=== PATIENT | female | born 2000 | race Two or more races ===

== ENCOUNTER 2025-03-28 15:07 | Inpatient (IN) | payer OTHER ==
[~2025-03-28] VITALS: Ht 165.1 cm; Wt 52.2 kg
--- NOTE | 2025-03-28 15:26 | NUR ---
PTE ALERTA Y ORIENTADA X 3 ESFERAS QUIEN REFIERE DIARREAS Y VOMITOS DESDE L VIERNES [place] DE [facility] DE [place].PTE CON LABS.
[2025-03-28] MEDS ORDERED: LEXAPRO5 MG (15:28)
[2025-03-28] MEDS ORDERED: 0.9 % SODIUM CHLORIDE 1,000 ML IV ONE (15:45)
[2025-03-28] MEDS ORDERED: ONDANSETRON HCL 2 MG/ML VIAL IV ONE (15:45)
[2025-03-28] MEDS ORDERED: LACTOBACILLUS ACIDOPHILUS 1 CAP CAP PO ONE (15:45)
[2025-03-28] MEDS ORDERED: FAMOTIDINE/PF 20 MG/2 ML VIAL IV ONE (15:45)
[2025-03-28] MEDS ORDERED: CIPROFLOXACIN IN 5 % DEXTROSE 400 MG/200 ML PIGGYBAG IV ONE (16:15)
[2025-03-28] MEDS ORDERED: METRONIDAZOLE/SODIUM CHLORIDE 500 MG/100 ML PIGGYBACK IV ONE (16:15)
[2025-03-28 16:24] LABS: BASO % 0.3 % (0.1-1.2); EOS # 0.16 (0.04-0.54); EOS % 2.4 % (0.7-7.0); LYMPH # 1.60 (1.18-3.74); LYMPH % 23.8 % (19.3-53.1); MEAN PLATELET VOLUME 9.90 fl (9.4-12.4); MONO # 0.81 (0.24-0.82); NEUT # 4.11 (1.56-6.13); NEUT % 61.3 % (34.0-71.1); RED CELL DISTRIBUTION WIDTH 12.0 % (11.6-14.4)
--- NOTE | 2025-03-28 16:24 | NUR ---
SE ORIENTA A PACIENTE SOBRE TX MEDICO, REFIERE ENTENDER. SE REALIZAN MUESTRAS DE LABORATORIO BAJO MEDIDAS ASEPTICA.SE ADMINISTRAN MEDICAMENTOS ADITI ORDEN MEDICA. PENDIENTE RE-EVALUACION MEDICA.
[2025-03-28 16:36] LABS: MONO % 12.1 % (4.7-12.5)
[2025-03-28 16:47] LABS: COVID-19 AG NEGATIVE (NEGATIVE)
[2025-03-28 16:56] LABS: ALT/SGPT 39.0 U/L (12-78); AST/SGOT 25.0 U/L (15-37); BILIRUBIN TOTAL 0.59 mg/dL (0.3-1.2); BUN CREA RATIO 9.0 (7.0-25.0); CREATININE SERUM 0.91 mg/dL (0.55-1.02); GFR 77.3; GLOBULINA 4.2 G/DL (2.4-3.5); GLUCOSE FASTING 91.0 mg/dL (65-100); OSMOLALITY SERUM 272.0 MOSM/KG (275-295)
[2025-03-28 17:27] LABS: ob POSITIVE (NEGATIVE)
[2025-03-28] MEDS ORDERED: DIPHENHYDRAMINE HCL 50 MG/ML VIAL 1ML IV ONE (19:00)
[2025-03-28] MEDS ORDERED: METHYLPREDNISOLONE SOD SUCC 125 MG VIAL IV ONE (19:00)
[2025-03-28] MEDS ORDERED: 0.9 % SODIUM CHLORIDE 1,000 ML IV SCH (19:45)
[2025-03-28] MEDS ORDERED: LACTOBACILLUS ACIDOPHILUS 1 CAP CAP PO SCH (19:48)
[2025-03-28] MEDS ORDERED: FAMOTIDINE/PF 20 MG in 0.9 % SODIUM CHLORIDE 8 ML IV PUSH SCH (19:49)
[2025-03-28] MEDS ORDERED: ONDANSETRON HCL 4 MG in 0.9 % SODIUM CHLORIDE 50 ML IV PRN (20:00)
[2025-03-28] MEDS ORDERED: MORPHINE SULFATE 2 MG/ML CARTRIDGE IV PRN (20:00)
[2025-03-28] MEDS ORDERED: ACETAMINOPHEN 500 MG GEL..CAP PO PRN (20:00)
[2025-03-28] MEDS ORDERED: POTASSIUM CHLORIDE IN WATER 100 ML IV SCH (21:00)
[2025-03-29 00:43] LABS: INR 1.01
[2025-03-29 02:04] VITALS: BP 105/69
[2025-03-29 03:39] LABS: URINE APPEARANCE Clear; URINE BILIRRUBIN Negative (NEGATIVE); URINE BLOOD Negative; URINE COLOR Yellow; URINE GLUCOSE Negative (NEGATIVE); URINE KETONE 15 (NEGATIVE); URINE LEUKOCYTE Small; URINE NITRATE Negative; URINE PROTEIN Negative (NEGATIVE); URINE UROBILINOGEN 0.2 E.U./dl
[2025-03-29 03:52] LABS: URINE BACTERIA 6429.1 uL (0.0-1933); URINE EPITHELIAL CELLS 39.3 uL (0.0-38.8); URINE RBC 2.7 uL (0.0-20.8); URINE WBC 76.3 uL (0.0-23.2)
[2025-03-29 04:00] LABS: URINE CAST 0.73 uL (0.0-1.40)
[2025-03-29] MEDS ORDERED: levoFLOXacin IN DEXTROSE 5 % 150 ML IV SCH (09:00)
[2025-03-29 09:34] VITALS: BP 98/57; O2SAT 98
[2025-03-29] MEDS ORDERED: AZITHROMYCIN 500 MG TABLET PO SCH (17:00)
[2025-03-29 18:48] VITALS: BP 101/64; O2SAT 100
[2025-03-29] MEDS ORDERED: FAMOTIDINE/PF 20 MG in 0.9 % SODIUM CHLORIDE 8 ML IV PUSH SCH (21:00)
[2025-03-30 02:53] VITALS: BP 94/53; O2SAT 96
[2025-03-30 09:48] VITALS: BP 91/54; O2SAT 96
[2025-03-30 09:49] LABS: BUN CREA RATIO 12.0 (7.0-25.0); CREATININE SERUM 0.5 mg/dL (0.55-1.02); GFR 154.28; GLUCOSE FASTING 98.0 mg/dL (65-100); OSMOLALITY SERUM 283.0 MOSM/KG (275-295)
[2025-03-31 23:08] LABS: GIARDIA LAMBLIA EIA Negative (Negative)
[2025-04-03 11:08] LABS: campy Final report (.)
== END 2025-03-30 18:05 | disposition home or self-care (01) | DRG 392 ==
LOC: ER 15:07 → MEDJ 19:58 → SEC-K 19:58 → MEDJ 21:32
PROVIDERS: General Practice; Internal Medicine Infectious Disease; ADMIT Internal Medicine; ATTEND Internal Medicine
PROC: BW21YZZ Computerized Tomography (CT Scan) of Abdomen and Pelvis using Other Contrast (ICD-10-PCS; principal; 2025-03-28)
DX: K52.9 Noninfective gastroenteritis and colitis, unspecified (principal); E87.6 Hypokalemia